=== PATIENT | female | born 1995 | race Caucasian/White ===

== ENCOUNTER 2024-02-29 19:40 | Emergency (ER) | payer OTHER ==
[2024-02-29 19:54] VITALS: BP 102/68; PULSE 93; RESP 19; TEMP 98.2; BMI 23.3
[2024-02-29] MEDS ORDERED: AMOX TR/POT CLAV 875MG/125MG TABLETS (FP) ONE (21:48)
[2024-02-29] MEDS ORDERED: DIPHTH,PERTUSS(ACELL),TET 0.5 ML DISP.SYRIN IM ONE (21:49)
[2024-02-29] MEDS ORDERED: RABIES VACCINE (PCEC)/PF 2.5 UNIT/VIAL IM ONE (21:51)
[2024-02-29] MEDS ORDERED: RABIES IMMUNE GLOBULIN 300 UNITS/1 ML VIAL ONE (21:55)
[2024-02-29] MEDS: AMOX TR/POT CLAV 875MG/125MG TABLETS (FP) PO ONE (22:37)
[2024-02-29] MEDS: DIPHTH,PERTUSS(ACELL),TET 0.5 ML DISP.SYRIN IM ONE (22:37)
[2024-02-29] MEDS: RABIES VACCINE (PCEC)/PF 2.5 UNIT/VIAL IM ONE (22:38)
[2024-02-29] MEDS: RABIES IMMUNE GLOBULIN 300 UNITS/1 ML VIAL IM ONE (22:39)
== END 2024-02-29 22:55 | disposition home or self-care (01) ==
LOC: JER 19:40
PROC: 3E0234Z Introduction of Serum, Toxoid and Vaccine into Muscle, Percutaneous Approach (ICD-10-PCS; principal; 2024-02-29)
DX: S81.851A Open bite, right lower leg, initial encounter (principal); S90.512A Abrasion, left ankle, initial encounter; W55.01XA Bitten by cat, initial encounter
CPT/HCPCS: 90375; 90471; 90472; 90675; 90715; 99283-25